=== PATIENT | female | born 1955 | race Caucasian/White ===

== ENCOUNTER 2016-12-13 22:22 | Emergency (ER) | payer OTHER ==
[~2016-12-13] VITALS: Ht 170.2 cm; Wt 106.1 kg
--- NOTE | 2016-12-14 00:19 | PHYS DOC ---
General Chief Complaint: LOWER EXT PAIN Stated Complaint: THINKS BLOOD CLOT IN LEG Time Seen by MD: 00:14 Source: patient, family Problems: History of Present Illness Initial Comments Patient here for left lower extremity swelling. Patient says that she's had some pain off and on over the lateral aspect the left lower leg the last month. However, this morning she woke up and she had a small amount of swelling over the lateral aspect of the middle third of the left lower leg. Over the course the evening this increase, she decided to come to the ER for further evaluation. At time of physician evaluation, she notes that swelling is somewhat improved. She did talk to her own doctor today to try to set up an outpatient ultrasound. She did tell her to take aspirin use warm compresses, and got worse to come to the ER for care. Patient's otherwise been doing fairly well. There is no fever chills URI symptoms or cough. There's no chest pain or shortness of breath. No nausea vomiting or abdominal pain. She has no change amount of bladder habits there is no other focal extremity or neurologic complaints except as noted. She has no weakness numbness or tingling within the left lower leg or the other extremity is, and she's been able to be up and about on her feet without difficulty tonight. Other than warm compresses and aspirin she's been nothing home for this but the occasional Tylenol over the past month. She has no other increasing or decreasing factors. She says the pain has been there for the last month but the swelling is new today. There is no history of injury or trauma recently to the lower extremity is. She did have some injuries 5 years ago falling on concrete steps. Patient's past medical history is remarkable for history of breast cancer with lumpectomy. She is a nonsmoker and a very rare user of ethanol. Past Medical History Medical History: cancer Social History Smoker: non-smoker Alcohol: rarely Review of Systems All Other Systems: Reviewed and Negative Physical Exam General Appearance: WD/WN, no apparent distress Neck: full range of motion, supple, normal inspection Respiratory: lungs clear, normal breath sounds, no respiratory distress Cardiovascular: regular rate, rhythm, no edema Gastrointestinal: non tender, soft, no organomegaly Back: no CVA tenderness, no vertebral tenderness Extremities: non-tender, normal inspection, no calf tenderness, other Neurologic/Psychiatric: alert, normal mood/affect, oriented x 3 Skin: normal color Comments Generally this is a well-developed well-nourished white female in no acute distress. Vitals are as noted. Pertinent findings on physical exam shows the chest to be clear. Cardiovascular exam shows regular rate and rhythm without murmur. The abdomen is soft and nontender. Back shows no CVA tenderness. Extremities show no redness, cords, asymmetry, or signs of DVT. There is some minimal edema over the middle third of the lateral aspect of the left lower leg. There are no signs of trauma. There is no gross varicosity seen. The area is grossly nontender. There is no distinct signs of DVT. There are no distal foot or toe motor sensory, or ivascular deficits noted within the left lower extremity. Neurologic exam finds patient awake alert oriented and cooperative. Remainder of physical exam is clinically unremarkable. Orders, Labs, Meds Old charts note no prior ER visits within the current system. X-rays of the left tibia and fibula show no acute fracture dislocation or bony lesion per the emergency physician. Doppler ultrasound of the left lower extremity shows no evidence of DVT per radiology. 0130 Patient resting comfortable in the ER. I discussed with her the uncertain cause of her lower extremity swelling. There is certainly no evidence of blood clot, and no bony lesions noted on plain films. We discussed they follow-up with primary care, she states she was planning on doing so. Apparently both her physician and the signal operator technical noted that she might need arterial studies. She really is not having good pain relief with Tylenol, so I will go ahead and give her a Lortab here and a prescription for some for home. She does voiced understanding need to follow up with primary care or return to the ER sooner as needed if worsening anyway. She has been able to be up and ambulatory on her leg and I think she'll do well at home. She looks well, no acute discomfort or stress, okay for discharge home at this time. JOSE LUIS ZALDIVAR MD Dec 14, 2016 00:19
--- NOTE | 2016-12-14 01:10 | RAD ---
Examination: Ultrasound left lower extremity venous duplex. History: History of pain. COMPARISON None available. TECHNIQUE Grayscale, color Doppler 2D, spectral waveform analysis of the left lower extremity venous system were performed. Findings The visualized common femoral vein, superficial femoral vein, popliteal vein demonstrate normal compression augmentation of flow. The visualized calf veins are patent. No abnormality identified in the mid anterior lateral left calf region. IMPRESSION No evidence of deep venous thrombus identified in the left lower extremity venous system. Electronically signed by: Isacc Pedraza (Dec 14, 2016 01:08:43)
[2016-12-14 01:50] VITALS: BP 138/75
[2016-12-14] MEDS ORDERED: HYDROCODONE/APAP 5/325MG TABLET. PO ONE (02:00)
--- NOTE | 2016-12-14 09:44 | RAD ---
Portable left tibia and fibula, 2 views, 12/14/2016: History: Swelling No fracture or destructive bony lesion is seen. There are mild degenerative changes at the knee and ankle. There is moderate subcutaneous edema. IMPRESSION: No acute bony abnormality is detected.
== END 2016-12-14 01:50 | disposition home or self-care (01) ==
LOC: ER 22:22
DX: M79.89 Other specified soft tissue disorders (principal); M79.605 Pain in left leg
CPT/HCPCS: 73590; 93971; 99284-25

== ENCOUNTER 2018-06-13 08:01 | Observation (INO) | payer OTHER ==
[~2018-06-13] VITALS: Ht 170.2 cm; Wt 109.5 kg
--- NOTE | 2018-06-13 08:24 | ED.ADGEN ---
Past History Past Medical History: Cancer, Diabetes Past Surgical History: Other Alcohol Use: None Drug Use: None Adult General Chief Complaint Chief Complaint Dizziness HPI HPI Patient is a 62 year old female who presents with a complaint of dizziness. She states that around 6:30 AM she noticed that she was unable to walk successfully and she felt somewhat drunk. States that she was constantly having to grab onto the wall. Admits to neck pain that started a couple of weeks ago. She had chiropractic manipulation performed 2 times last week. While obtaining history on arrival I am performing NIH stroke scale score is 0. Her, due to ataxia code stroke activated. Review of Systems Review of Systems Constitutional: Denies fever or chills Eyes: Denies change in visual acuity, redness, or eye pain HENT: Denies nasal congestion or sore throat Respiratory: Denies cough or shortness of breath Cardiovascular: Denies chest pain, denies syncope GI: Denies abdominal pain, nausea, vomiting, bloody stools or diarrhea : Denies dysuria or hematuria Musculoskeletal: Denies back pain or joint pain Integument: Denies rash or skin lesions Neurologic: Denies headache, focal weakness or sensory changes Endocrine: Denies polyuria or polydipsia All other systems were reviewed and found to be within normal limits, except as documented in this note. Family History Family History noncontributory Current Medications Current Medications Current Medications Medications (Trade) Dose Ordered Sig/Sourav Start Time Stop Time Status Last Admin Dose Admin Diphenhydramine HCl (Benadryl) 25 mg 1X ONCE 06/13/18 09:00 06/13/18 09:01 DC 06/13/18 08:49 25 MG Iohexol (Omnipaque 300 Mg/ml) 75 ml 1X ONCE 06/13/18 09:00 06/13/18 09:01 DC 06/13/18 09:16 75 ML Methylprednisolone Sodium Succinate (SOLU-Medrol 125MG VIAL) 125 mg 1X ONCE 06/13/18 09:00 06/13/18 09:01 DC 06/13/18 08:54 125 MG Ondansetron HCl (Zofran) 4 mg PRN Q4HRS PRN 06/13/18 10:45 06/14/18 10:44 Sodium Chloride 1,000 ml @ 1,000 mls/hr 1X ONCE 06/13/18 08:45 06/13/18 09:44 DC 06/13/18 08:49 1,000 MLS/HR metformin, lisinopril, see list Allergies Allergies Allergies Coded Allergies Type Severity Reaction Last Updated Verified iodine Allergy Intermediate 06/13/18 Yes flexeril Physical Exam Physical Exam Constitutional: Well developed, well nourished, no acute distress, non-toxic appearance. HENT: Normocephalic, atraumatic, bilateral external ears normal, oropharynx moist, no oral exudates, nose normal. Eyes: PERRLA, EOMI, conjunctiva normal, no discharge. Neck: Normal range of motion, no tenderness, supple, no stridor. Cardiovascular:Heart rate regular rhythm, no murmur Lungs & Thorax: Bilateral breath sounds clear to auscultation Abdomen: Bowel sounds normal, soft, no tenderness, no masses, no pulsatile masses. Skin: Warm, dry, no erythema, no rash. Back: No tenderness, no CVA tenderness. Extremities: No tenderness, no cyanosis, no clubbing, ROM intact, no edema. Neurologic: Alert and oriented X 3, normal motor function, normal sensory function, [id number]-[id number] normal, dzgx-cu-[id number] normal, peripheral vision intact in all 4 quadrants bilaterally, speech normal, no aphasia, very subtle fatigable left beating nystagmus, ambulation with mild ataxia Psychologic: Affect normal, judgement normal, mood normal. Current Patient Data Vital Signs Vital Signs Date Time Temp Pulse Resp B/P (MAP) Pulse Ox O2 Delivery O2 Flow Rate FiO2 06/13/18 09:51 82 22 154/88 (110) 99 Room Air 06/13/18 08:15 98.2 mildly hypertensive Lab Results Laboratory Tests Test 06/13/18 08:30 White Blood Count 5.8 x10^3/uL (4.0-11.0) Red Blood Count 4.18 x10^6/uL (3.50-5.40) Hemoglobin 13.3 g/dL (12.0-15.5) Hematocrit 38.8 % (36.0-47.0) Mean Corpuscular Volume 93 fL (79-100) Mean Corpuscular Hemoglobin 32 pg (25-35) Mean Corpuscular Hemoglobin Concent 34 g/dL (31-37) Red Cell Distribution Width 13.3 % (11.5-14.5) Platelet Count 316 x10^3/uL (140-400) Neutrophils (%) (Auto) 70 % (31-73) Lymphocytes (%) (Auto) 19 % (24-48) L Monocytes (%) (Auto) 7 % (0-9) Eosinophils (%) (Auto) 2 % (0-3) Basophils (%) (Auto) 1 % (0-3) Neutrophils # (Auto) 4.1 x10^3uL (1.8-7.7) Lymphocytes # (Auto) 1.1 x10^3/uL (1.0-4.8) Monocytes # (Auto) 0.4 x10^3/uL (0.0-1.1) Eosinophils # (Auto) 0.1 x10^3/uL (0.0-0.7) Basophils # (Auto) 0.1 x10^3/uL (0.0-0.2) Prothrombin Time 10.3 SEC (9.4-11.4) Prothrombin Time INR 1.0 (0.9-1.1) PTT 23 SEC (23-33) Sodium Level 133 mmol/L (136-145) L Potassium Level 3.9 mmol/L (3.5-5.1) Chloride Level 97 mmol/L (98-107) L Carbon Dioxide Level 30 mmol/L (21-32) Anion Gap 6 (6-14) Blood Urea Nitrogen 10 mg/dL (7-20) Creatinine 0.8 mg/dL (0.6-1.0) Estimated GFR (Cockcroft-Gault) 72.2 BUN/Creatinine Ratio 13 (6-20) Glucose Level 219 mg/dL (70-99) H Calcium Level 9.1 mg/dL (8.5-10.1) Total Bilirubin 0.8 mg/dL (0.2-1.0) Aspartate Amino Transferase (AST) 24 U/L (15-37) Alanine Aminotransferase (ALT) 37 U/L (14-59) Alkaline Phosphatase 111 U/L (46-116) Total Protein 6.9 g/dL (6.4-8.2) Albumin 3.3 g/dL (3.4-5.0) L Albumin/Globulin Ratio 0.9 (1.0-1.7) L EKG EKG EKG interpreted by me at 8:34 AM reveals sinus rhythm at 74 bpm with no acute ischemic changes, QTC 418 ms, no previous available at this time. Radiology/Procedures Radiology/Procedures History: SEVERE DIZZINESS, BILATERAL ARM TINGLING/NUMBESS, CHIROPRACTIC MANIPULATION DONE TWICE LAST WEEK, CONCERN FOR CAROTID DISSECTION. PT POSSIBLY ALLERGIC TO CONTRAST, PT PREMEDICATED. 75MLS OMNI 300 IV CONTRAST. NO REACTION NOTED. Comparison/Correlation: None Findings: Axial images of the head and neck were obtained following 75 cc Omnipaque 300 IV. Sagittal and coronal reformatted images were provided. Cerebral vasculature is normal. [place] is grossly unremarkable. Ventricles are normal size. No midline shift or mass effect. Opacification of much of the left maxillary sinus is noted. Opacification of maxillary sinus ostium noted. The carotid arteries are patent in appearance but evaluation is limited at the level of dental amalgam and at the contrast opacified level of the left internal jugular vein at the lower neck level and the left subclavian and left brachiocephalic levels. Trachea is unremarkable. No enlarged cervical lymph nodes. Parotid and submandibular glands are unremarkable. True and false cords are symmetric. Atlantoaxial joint degenerative remodeling is present. Moderate C5-6 disc space narrowing. Impression: No evidence of carotid artery dissection. No definite stenosis. Intracranial arterial vasculature is unremarkable. Electronically signed by: Nadeem Miles MD (06/13/2018 10:01 AM) [facility] DICTATED AND SIGNED BY: NADEEM MILES MD DATE: 06/13/18 0940 CC: CINDY YATES DO; FIDEL RAGLAND MD ~ Course & Med Decision Making Course & Med Decision Making 8:32 AM. Called by radiologist. CT negative for bleeding. Discussed IV contrast with patient. She states that she had a reaction to the contrast during a cardiac catheterization. States she had hives on her right arm. Risk first benefit in favor of pretreatment with Benadryl and Solu-Medrol. Pretest probability of posterior circulation dissection justifies getting the contrast because she would be an interventional radiology candidate and we don't want to waste time. Ddx includes but not limited to: Central vertigo, peripheral vertigo, cerebellar syndrome, carotid/vertebral injury Final Impression Final Impression Ataxic gait Elevated blood pressure with a history of hypertension Plan: Case d/w neurologist train station server Dr. Rojas and hospitalist Dr. Pineda. Admission for further eval. Kourtney Disclaimer Kourtney Disclaimer This electronic medical record was generated, in whole or in part, using a voice recognition dictation system. CINDY YATES DO Jun 13, 2018 08:24
--- NOTE | 2018-06-13 08:33 | RAD ---
CT scan of the head without contrast 06/13/2015 Clinical History: Code stroke. Technique: Unenhanced, contiguous, 5 mm axial sections were obtained through the head. Findings: No previous imaging studies are available for comparison. There is mild generalized parenchymal atrophy. Areas of decreased attenuation are seen within the periventricular and subcortical white matter of both cerebral hemispheres consistent with areas of mild small vessel ischemic disease. No acute parenchymal abnormality is seen. No extra-axial fluid collection is noted. No skull fracture is seen. Moderate mucosal thickening is involving the left maxillary sinus. A small fluid level is seen within the left maxillary sinus. Impression: No acute intracranial abnormality is seen. This result was called to Dr. Abdi at 0826 hours. Electronically signed by: Philippe Artis MD (06/13/2018 8:29 AM) [id number]
--- NOTE | 2018-06-13 08:35 | EKG ---
[address] [address] Test Date: 2018-06-13 Test Time: 08:31:03 Pat Name: SHAYNA AUGUST Department: Room: Gender: F Admitting Counselor: : [id number] Requested By: CINDY YATES Order Number: [id number] Reading MD: Joey Jin Measurements Intervals [place] Rate: 74 P: 34 NE: 176 QRS: 28 QRSD: 88 T: 25 QT: 372 QTc: 418 Interpretive Statements SINUS RHYTHM Electronically Signed On 06-16-2018 12:16:54 CDT by Joey Jin
[2018-06-13] MEDS ORDERED: IV NORMAL SALINE 1,000ML 1,000 ML IV ONE (08:45)
[2018-06-13 08:50] LABS: BASO # 0.1 x10^3/uL (0.0-0.2); BASO % 1 % (0-3); EOS # 0.1 x10^3/uL (0.0-0.7); EOS % 2 % (0-3); HEMATOCRIT 38.8 % (36.0-47.0); HEMOGLOBIN 13.3 g/dL (12.0-15.5); LYMPH # 1.1 x10^3/uL (1.0-4.8); LYMPH % 19 % (24-48); MEAN CORPUSCULAR HEMOGLOBIN 32 pg (25-35); MEAN CORPUSCULAR HGB CONC 34 g/dL (31-37); MEAN CORPUSCULAR VOLUME 93 fL (79-100); MONO # 0.4 x10^3/uL (0.0-1.1); MONO % 7 % (0-9); NEUT # 4.1 x10^3uL (1.8-7.7); NEUT % 70 % (31-73); PLATELET COUNT 316 x10^3/uL (140-400); RED BLOOD COUNT 4.18 x10^6/uL (3.50-5.40); RED CELL DISTRIBUTION WIDTH 13.3 % (11.5-14.5); WHITE BLOOD COUNT 5.8 x10^3/uL (4.0-11.0)
[2018-06-13] MEDS ORDERED: methylPREDNISolone SOD SUCC PF 125 MG/2 ML VIAL. IV ONE (09:00)
[2018-06-13] MEDS ORDERED: IOHEXOL 300 MG/ML 75 ML VIAL. IV ONE (09:00)
[2018-06-13] MEDS ORDERED: diphenhydrAMINE 50 MG/ML VIAL IVP ONE (09:00)
[2018-06-13 09:05] LABS: ALBUMIN 3.3 g/dL (3.4-5.0); ALBUMIN/GLOBULIN RATIO 0.9 (1.0-1.7); CALCIUM 9.1 mg/dL (8.5-10.1); CREATININE 0.8 mg/dL (0.6-1.0); GFR 72.2; POTASSIUM 3.9 mmol/L (3.5-5.1); TOTAL BILIRUBIN 0.8 mg/dL (0.2-1.0); TOTAL PROTEIN 6.9 g/dL (6.4-8.2)
--- NOTE | 2018-06-13 10:05 | RAD ---
Examination: CT ANGIOGRAPHY HEAD AND NECK History: SEVERE DIZZINESS, BILATERAL ARM TINGLING/NUMBESS, CHIROPRACTIC MANIPULATION DONE TWICE LAST WEEK, CONCERN FOR CAROTID DISSECTION. PT POSSIBLY ALLERGIC TO CONTRAST, PT PREMEDICATED. 75MLS OMNI 300 IV CONTRAST. NO REACTION NOTED. Comparison/Correlation: None Findings: Axial images of the head and neck were obtained following 75 cc Omnipaque 300 IV. Sagittal and coronal reformatted images were provided. Cerebral vasculature is normal. [place] is grossly unremarkable. Ventricles are normal size. No midline shift or mass effect. Opacification of much of the left maxillary sinus is noted. Opacification of maxillary sinus ostium noted. The carotid arteries are patent in appearance but evaluation is limited at the level of dental amalgam and at the contrast opacified level of the left internal jugular vein at the lower neck level and the left subclavian and left brachiocephalic levels. Trachea is unremarkable. No enlarged cervical lymph nodes. Parotid and submandibular glands are unremarkable. True and false cords are symmetric. Atlantoaxial joint degenerative remodeling is present. Moderate C5-6 disc space narrowing. Impression: No evidence of carotid artery dissection. No definite stenosis. Intracranial arterial vasculature is unremarkable. Electronically signed by: Nadeem Sosa MD (06/13/2018 10:01 AM) [facility]
[2018-06-13] MEDS ORDERED: ONDANSETRON PF 4 MG/2 ML VIAL. IV PRN (10:45)
[2018-06-13 11:50] VITALS: BP 136/83
[2018-06-13] MEDS ORDERED: LEVO50TA5 PO (14:45)
[2018-06-13] MEDS ORDERED: SITA100T PO (14:45)
[2018-06-13] MEDS ORDERED: LOSA25TA5 PO (14:45)
[2018-06-13] MEDS ORDERED: METF500T16 PO (14:45)
[2018-06-13] MEDS ORDERED: CONTRAST GIVEN MC PRN (15:15)
--- NOTE | 2018-06-13 15:35 | HP ---
ADMIT DATE: 06/13/2018 HISTORY OF PRESENT ILLNESS: The patient is a 62-year-old female patient, who came to the Emergency Room, complaining of dizziness. She stated that around 6:30 in the morning, she noted that she was unable to walk successfully and she felt somewhat drank, states that she was constantly having to grab on to the salas, admits to neck pain, this started about 4 weeks ago. She has seen chiropractic, underwent chiropractic manipulation, performed 2 times last week. She apparently was evaluated in the Emergency Room, was found to have a tendency to fall towards the right side. She was extensively investigated. Her CT scan of the head showed no acute intracranial abnormalities seen and her CT angio of the head and neck showed no evidence of carotid artery dissection. No definite stenosis. Intracranial arterial vasculature is unremarkable. The patient was admitted for further evaluation and treatment and to consult the neurologist. The patient stated that about 4 weeks ago, she started having pain in her right side of the neck after she is sleeping somewhat in an awkward position. She attributed that to multiple stressors including bearing her dog and also her stress because of taking care of multiple children. The pain continued for about 4 weeks. She underwent chiropractic manipulation 2 times last week and felt better while there, but the pain comes back within 3 hours, leaving the chiropractor clinic. This morning when she woke up, she started feeling dizzy and her tendency to fall to the right side that was confirmed by the Emergency Room physician. PAST MEDICAL HISTORY: Significant for type 2 diabetes mellitus, hypertension, and hypothyroidism. According to her, she underwent left heart catheterization in 2016, which showed that all her coronary arteries are patent. PAST SURGICAL HISTORY: Significant for total abdominal hysterectomy without oophorectomy, underwent cholecystectomy, lumpectomy of the right breast, bilateral cataract extraction, laser with coagulation of her left eye. ALLERGIES: SHE IS ALLERGIC TO IODINE, HEPARIN AND FLEXERIL. MEDICATIONS: She is currently on following medications: She is on metformin, Januvia, losartan, and levothyroxine. FAMILY HISTORY: She has 5 brothers and 2 sisters. Her oldest sister at the age of 62 because of pancreatic cancer. Her younger sister was diagnosed with breast cancer when she was 52 years old. All her brothers are relatively healthy. Her father at age 58 because of myocardial infarction. He was alcoholic and heavy smoker. Mother at age of 67 because of ovarian cancer. SOCIAL HISTORY: She is , lives alone. She has 3 sons. She smoked for 2 years during her younger age. She does not drink alcohol. She is a para machine operator. REVIEW OF SYSTEMS: The patient denied any blurring of vision. She had bilateral cataract extraction, but denied any glaucoma or macular degeneration. She denied any earache, tinnitus or sensorineural deafness. Denied any nosebleeds, stuffy nose or postnasal drip. Denied any sore throat, sore tongue, toothache, hoarseness of voice or difficulty swallowing. Denied any nausea, vomiting, diarrhea or constipation. Denied any hematemesis, melena or hematochezia. Denied any dysuria, frequency or hematuria. Denied any chest pain, shortness of breath, orthopnea, paroxysmal nocturnal dyspnea. Denied any cough, phlegm or hemoptysis. Denied any chills, rigors, or fever. She did complain of dizziness, but denied any spinning things, spinning around and apparently has tendency to fall towards the right side. LABORATORY DATA: While in the Emergency Room, she had lab work showed a serum sodium 133, potassium 3.9, chloride 97, bicarbonate 30, anion gap of 6, BUN 10, creatinine 0.8, estimated GFR was 72 mL per minute. Her glucose was 219, calcium was 9.1. Total bilirubin, AST, ALT, alkaline phosphatase were normal. Her total protein was 6.9, albumin 3.3. Her white cell count was 5800, hemoglobin 13.3, hematocrit 38.8, MCV was 93 and a platelet count 316,000. Her prothrombin time was 10.3, INR 1, and aPTT was 23. As I stated earlier, her CT scan of the head showed that there is mild generalized parenchymal atrophy, areas of decreased attenuation are seen within the periventricular and subcortical white matter of both cerebral hemispheres consistent with areas of mild small vessel ischemic disease, no acute parenchymal abnormality seen. No extraaxial fluid collection is noted, no skull fracture is seen, and moderate mucosal thickening is involving the left maxillary sinus. A small fluid level is seen within the left maxillary sinus. CT angio of the neck and head showed that the carotid arteries are patent in appearance, but evaluation is limited at the level of dental amalgam and the other contrast specified level of the left internal jugular vein at the lower neck level and the left subclavian and brachiocephalic levels. Trachea is unremarkable. No enlarged cervical lymph nodes, parotid glands. Submandibular glands are unremarkable. True and false cords are symmetrical and the impression is that the patient has no evidence of carotid artery dissection. No definite stenosis. The intracranial arterial vasculature is unremarkable. The patient was admitted and we will continue all her medication. We will consult the Dr. Rojas for further evaluation and treatment. CRISPIN GRIFFIN MD DR: CÉSAR/fara JOB#: [id number] / [id number]
[2018-06-13 16:30] VITALS: BP 142/83
[2018-06-13] MEDS ORDERED: METF10007 PO (18:59)
[2018-06-13 19:27] VITALS: BP 116/64
[2018-06-13] MEDS: ASPIRIN 81 MG TAB.CHEW PO SCH (20:06)
[2018-06-13] MEDS ORDERED: NON FORMULARY ITEM (Metformin Hcl 1 TAB) PO SCH (21:00)
[2018-06-13 22:42] VITALS: BP 135/77
[2018-06-14 04:58] VITALS: BP 111/69
[2018-06-14] MEDS ORDERED: LEVOTHYROXINE 50 MCG TABLET PO SCH (06:00)
[2018-06-14 07:49] LABS: BASO % 0 % (0-3); EOS % 0 % (0-3); HEMATOCRIT 38.6 % (36.0-47.0); HEMOGLOBIN 12.8 g/dL (12.0-15.5); LYMPH # 2.7 x10^3/uL (1.0-4.8); LYMPH % 25 % (24-48); MEAN CORPUSCULAR HEMOGLOBIN 31 pg (25-35); MEAN CORPUSCULAR HGB CONC 33 g/dL (31-37); MEAN CORPUSCULAR VOLUME 93 fL (79-100); MONO # 0.9 x10^3/uL (0.0-1.1); MONO % 8 % (0-9); NEUT % 66 % (31-73); PLATELET COUNT 311 x10^3/uL (140-400); RED BLOOD COUNT 4.14 x10^6/uL (3.50-5.40); RED CELL DISTRIBUTION WIDTH 13.6 % (11.5-14.5); WHITE BLOOD COUNT 10.6 x10^3/uL (4.0-11.0)
[2018-06-14 07:58] LABS: ALBUMIN 3.1 g/dL (3.4-5.0); ALBUMIN/GLOBULIN RATIO 0.9 (1.0-1.7); CALCIUM 9.2 mg/dL (8.5-10.1); CREATININE 0.8 mg/dL (0.6-1.0); GFR 72.2; POTASSIUM 3.6 mmol/L (3.5-5.1); TOTAL BILIRUBIN 0.9 mg/dL (0.2-1.0); TOTAL PROTEIN 6.5 g/dL (6.4-8.2)
[2018-06-14 08:15] VITALS: BP 111/69
[2018-06-14] MEDS: ASPIRIN 81 MG TAB.CHEW PO SCH (08:15)
[2018-06-14] MEDS ORDERED: LOSARTAN 25 MG TABLET. PO SCH (09:00)
[2018-06-14] MEDS ORDERED: LINAGLIPTIN 5 MG TABLET PO SCH (09:00)
[2018-06-14 11:49] LABS: % BANDS 5 % (0-9); % EOS 2 % (0-5); % LYMPHS 21 % (24-48); % MONOS 4 % (0-10); % SEGS 66 % (35-66); PLT ESTIMATE ADEQUATE (ADEQUATE)
--- NOTE | 2018-06-14 18:52 | DS ---
DATE OF DISCHARGE: HOSPITAL COURSE: The patient is a 62-year-old female patient, who was admitted yesterday with a complaint of dizziness. She stated that she was unable to walk and felt as if she was drunk. She states that she was constantly having to grab on to the salas, admits to neck pain. She also said that she has tendency to fall to the right side. She was evaluated in the Emergency Room, was found to have a tendency to fall towards the right side also; however, she was extensively investigated. Her CT scan of the head showed no acute intracranial abnormalities seen. Her CT angio of the head and neck showed that no evidence of carotid artery disease or dissection. No definite stenosis, intracranial arterial vasculature is unremarkable. When I examined her yesterday, I could not see evidence of any cerebellar dysfunction. She was able to walk without assistance or assistive devices without any tendency to fall to either side. I saw her again together with Dr. Rojas today and she was able to walk without any difficulty, without any tendency to fall. Denied any dizziness or lightheadedness. Denied things spinning around and it was felt that the patient is safe to be discharged home to follow with Dr. Rojas if she has any further issues. PHYSICAL EXAMINATION: GENERAL: When I examined her today, she looked well and was clearly in no apparent respiratory distress. No pallor, jaundice, cyanosis or thyromegaly. No jugular venous distention. No limb edema. VITAL SIGNS: Her heart rate was 88, blood pressure was 111/69, temperature was 98.1, respiratory rate 20, and oxygen saturation was 97%. HEAD, EYES, EARS, NOSE AND THROAT: Normocephalic, atraumatic. NECK: Supple. HEART: Showed normal first and second heart sounds with no gallop, rub or murmur. CHEST: Clear to auscultation. No crepitation or rhonchi. ABDOMEN: Distended, soft, nontender. No guarding or rigidity. No organomegaly. Hernial orifice intact. Bowel sounds normal. NEUROLOGICAL: She was awake, alert, and responding appropriately. All cranial nerves intact. She moves extremities without difficulty. She ambulates without assistance or assistive devices. LABORATORY DATA: Her lab work this morning showed a white cell count of 10,600, hemoglobin 12.8, hematocrit 38, MCV 93, and platelet count 311,000. Her chemistry showed a serum sodium of 135, potassium 3.5, chloride 96, bicarbonate 28, anion gap of 9, BUN 12, creatinine 0.8, estimated GFR was 72 mL per minute, her glucose was 174, and calcium was 9.2. Total bilirubin, AST, ALT, and alkaline phosphatase were normal. Total protein was 6.5, albumin was 3.1. Her prothrombin time was 10.3, INR 1, aPTT was 23. DISCHARGE MEDICATIONS: The patient will be discharged home on levothyroxine sodium 50 mcg once a day, losartan potassium 25 mg once a day, metformin 1000 mg twice a day, and Januvia 100 mg once a day. She was advised to not to take metformin until tomorrow morning as she had had CT angio and to avoid any contrast-induced nephropathy aggravated by metformin. FINAL DISCHARGE DIAGNOSES: Dizziness versus ataxia that apparently has self-limited, resolved without any obvious neurological deficit; hypothyroidism, hypertension, and type 2 diabetes. CRISPIN GRIFFIN MD DR: CÉSAR/fara JOB#: [id number] / [id number]
--- NOTE | 2018-06-15 10:13 | CONS ---
DATE OF CONSULTATION: 06/13/2018 NEUROLOGY CONSULTATION REFERRING PHYSICIAN: Dr. Pineda. REASON FOR CONSULTATION: Dizziness and unsteady gait. HISTORY OF PRESENT ILLNESS: This is a 62-year-old right-handed female who was admitted through the Emergency Room after she presented with new onset of dizziness described as lightheadedness then unsteady gait with impaired balance. The symptoms began at 6:30 in the morning. When she got up and tried to walk to the bathroom, she was unable to walk and she felt like as if she is drunk. She tilted to the right side against the wall, but she did not have a complete fall. She also complains of neck pain radiating to the right shoulder and sometimes the right upper extremity. The neck pain started approximately 4 weeks ago and she was seen by a chiropractor who did some manipulation. In the Emergency Room, the patient was found to have unsteady gait and a tendency to fall to the right. Initial nonenhanced head CT scan revealed no evidence of acute intracranial process; however, a CT angio of the neck and head revealed no evidence of vascular disease, narrowing or aneurysm, but it showed degenerative disk disease at C5-C6. She denies numbness or weakness of the upper extremities, but she continues to have neck pain as described above. The patient denies chest pain, shortness of breath or palpitation, dysarthria, dysphagia, palpitation, nausea, vomiting, or bowel movement changes. She denies any recent head injuries or fall. PAST MEDICAL HISTORY: Significant for hypertension, diabetes mellitus type 2, hypothyroidism. PAST SURGICAL HISTORY: Status post cardiac catheterization in 2016 without evidence of coronary artery disease, abdominal hysterectomy, cholecystectomy, lumpectomy of the right breast, bilateral cataract extraction, and laser surgery of the left eye. FAMILY HISTORY: Sister at the age of 62 from pancreatic cancer, another sister had breast cancer at age of 52. Father at the age of 58 from myocardial infarction and mother at the age of 67 from ovarian cancer. SOCIAL HISTORY: The patient is . She lives independently. She has 3 sons. She smokes and she quit. She denies smoking, alcohol drinking, or illicit drug use. She is a restaurant crew member. CURRENT HOME MEDICATIONS: Metformin, Januvia, losartan, and levothyroxine. ALLERGIES: IODINE. REVIEW OF SYSTEMS: A 10-point review of system was performed as mentioned above in history of present illness. PHYSICAL EXAMINATION: GENERAL: Well-developed, well-nourished female, in acute distress. She weighs 241 pounds. VITAL SIGNS: Blood pressure 116/64, respiratory rate 20, pulse is 108, temperature 98.4, oxygen saturation 95% on room air. HEENT: Normocephalic, atraumatic, otherwise unremarkable. NECK: Supple. Negative for carotid bruit, lymphadenopathy, or thyromegaly. LUNGS: Clear to A and P. CARDIOVASCULAR: Regular rhythm, normal S1-S2. There is no S3, S4, or murmur. ABDOMEN: Soft. Bowel sounds are positive. There is no palpable mass, organomegaly, or tenderness. EXTREMITIES: Negative for cyanosis, clubbing, or pitting edema. NEUROLOGIC: 1. Mental status: The patient is alert and oriented x 3. Speech is fluent. There is no language dysfunction. Memory, judgment, and abstract thinking are normal. The patient denies hallucination or delusion. 2. Cranial Nerves: Visual blake are full. The pupils are reactive to light and accommodation. The extraocular movements are intact. There is no nystagmus. There is no facial motor or sensory deficit. Hearing is intact bilaterally. The palate is elevated symmetrically. Sternocleidomastoid muscles are powerful bilaterally. The patient shrugs her shoulders symmetrically. She protrudes her tongue in the midline without fasciculation or atrophy. 3. Motor Examination: No muscle bulk is seen. The tone is normal. The strength is 5/5 throughout. 4. Sensory Examination: Reveals normal pinprick and light touch senses throughout. Deep tendon reflexes are asymmetric and hypoactive with absent Achilles responses. 5. Gait: The stance is steady. The patient has abnormal tandem gait. Coordination is normal. The patient has normal upesae-be-ogei and cxni-fn-taoj, rapid alternating movements and rapid repetitive movements. DIAGNOSTIC DATA: Head CT scan and CT angio of the neck and head as mentioned above in history of present illness. LABORATORY DATA: CBC revealed white blood cells of 5.8 thousand, hemoglobin 13.3, hematocrit 38.8, platelet count 316,000. Chemistry revealed sodium of 133, potassium 3.9, chloride 97, CO2 30, BUN 10, creatinine 0.8, glucose 219, calcium 9.1. Liver enzymes are normal. Coagulation is normal. IMPRESSION: 1. New onset of dizziness described as unsteady gait, resolved, with normal current neurological examination and no evidence of vascular disease, questionable of transient ischemic attack versus positional vertigo without neurological sequela. 2. Multiple medical problems include hypertension, diabetes mellitus type 2, and hypothyroidism. RECOMMENDATIONS: 1. We will continue with current home medications and management initiated by Dr. Pineda. 2. We will start the patient on aspirin 81 mg daily. 3. Physical therapy evaluation and weight loss program. 4. In case of progressive radicular neck pain, the patient should come to Neurology Clinic for further evaluation to rule out cervical radiculopathy versus entrapment neuropathy in the right upper extremity. M Frida BARR MD DR: ELDER/fara JOB#: [id number] / [id number]
--- NOTE | 2018-06-15 11:46 | PN ---
DATE: 06/14/2018 SUBJECTIVE: The patient denies any new medical or neurological complaints. She denies headaches, visual disturbances, nausea, vomiting, chest pain, shortness of breath or palpitation, dysarthria, dysphagia, weakness or paresthesia. The patient stated she is almost back to normal and she denies any falls. She walks better today. OBJECTIVE: GENERAL: Moderately obese female, not in acute distress. VITAL SIGNS: Blood pressure 111/69, respiratory rate 20, pulse is 88, temperature is 98.1, oxygen saturation 97% on room air. HEENT: Normocephalic, atraumatic, otherwise unremarkable. NECK: Supple. Negative for carotid bruit, lymphadenopathy, or thyromegaly. LUNGS: Clear to A and P. CARDIOVASCULAR: Regular rate and rhythm, normal S1-S2. There is no S3, S4, or murmur. ABDOMEN: Soft. Bowel sounds positive. EXTREMITIES: Negative for cyanosis, clubbing, or pitting edema. NEUROLOGIC: Normal mental status and intact cranial nerves. There is no evidence of focal, motor, or sensory deficit. Deep tendon reflexes were symmetric and active with absent Achilles responses. Gait and coordination were normal. IMPRESSION: 1. Dizziness upon changing her body positions presented with lightheadedness, unsteady gait, which has improved since admission and with normal neurological examination and negative nonenhanced head CT scan and negative head and neck CT angio for any vascular disease or stroke. 2. Multiple medical problems including hypertension, diabetes mellitus type 2, hypothyroidism. RECOMMENDATIONS: 1. Continue with current home medications and management initiated by Dr. Pineda. 2. Follow up with neurological clinic in case of intractable or radicular neck pain. M Frida BARR MD DR: ELDER/fara JOB#: [id number] / [id number]
[2018-06-15] MEDS ORDERED: metFORMIN 500 MG TABLET PO SCH (17:00)
== END 2018-06-14 11:30 | disposition home or self-care (01) ==
LOC: ER 08:01 → 1 SOUTH 11:04 → INTOOBSV 11:04
PROVIDERS: ADMIT Internal Medicine; ATTEND Internal Medicine
DX: R42 Dizziness and giddiness (principal); E11.9 Type 2 diabetes mellitus without complications; I10 Essential (primary) hypertension; E03.9 Hypothyroidism, unspecified; Z23 Encounter for immunization
CPT/HCPCS: 36415; 70450; 70496; 70498; 80053; 82947; 85007; 85025; 85610; 85730; 90471; 90756; 93005; 96361; 96374; 96375; 99285; G0378; J1200; J2930; Q9967; G0379; J7030; Q2035

== ENCOUNTER 2021-08-30 00:21 | Emergency (ER) | payer BC, OTHER ==
[~2021-08-30] VITALS: Ht 170.2 cm; Wt 109.0 kg
[~2021-08-30 00:21] MED LIST: LEVO50TA5 PO; LOSA25TA11 PO; METF10007 PO; METF500T16 PO; SITA100T PO
--- NOTE | 2021-08-30 01:02 | PHYS DOC ---
Past History Past Medical History: Diabetes, Hypertension, Hypothyroid Past Surgical History: Cholecystectomy, Hysterectomy, Other Alcohol Use: None Drug Use: None General Adult EDM: Chief Complaint: HIP PAIN HPI: HPI: " .. My hip has been killing me.. sometimes it better.. but other times I can't move.. I seen chiropractor and he did some adjustments on me and it seemed to feel better but after I got home it started hurting again really bad.... 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 " Patient is a 65 year old female who presents with above hx and complaints of severe Lt hip pain. Pain seems to follow the sciatic nerve on the Lt.. The p atient has had history of breast cancer and underwent chemotherapy radiation and surgery. Treatments reportedly has given care of the breast cancer. Patient denies any fever or chills. Is up-to-date with vaccinations including Covid Pneumovax and flu vaccine. No recent falls. Does feel that she may have overdone the other day when shopping. No history of heavy lifting. No history of immunosuppression. No history of recent travel. No specific ill contacts. Patient did undergo a chiropractic manipulation which helped at first but now the pain seems to be back. No problems with defecation or urination. No reported solid loss. Does have marked tenderness of the lumbar sacral left side and sciatic nerve as it comes through the hip area on the left. Pt. follows with [facility]. Review of Systems: Review of Systems: Constitutional: Denies fever or chills Eyes: Denies change in visual acuity HENT: Denies nasal congestion or sore throat Respiratory: Denies cough or shortness of breath Cardiovascular: Denies chest pain or edema GI: Denies abdominal pain, nausea, vomiting, bloody stools or diarrhea : Denies dysuria Musculoskeletal: Complains of severe left hip pain Integument: Denies rash Neurologic: Denies headache, focal weakness or sensory changes Endocrine: Denies polyuria or polydipsia Lymphatic: Denies swollen glands Psychiatric: Denies depression or anxiety Family History: Family History: Noncontributory to presentation. Current Medications: Current Meds: See nursing for home meds Allergies: Allergies: Allergies Coded Allergies Type Severity Reaction Last Updated Verified iodine Allergy Intermediate 06/13/18 Yes Physical Exam: PE: Constitutional: Reports acute distress, non-toxic appearance. [] HENT: Normocephalic, atraumatic, bilateral external ears normal, oropharynx moist, no oral exudates, nose normal. [] Eyes: PERRLA, EOMI, conjunctiva normal, no discharge. Glasses Neck: Normal range of motion, no tenderness, supple, no stridor. [] Cardiovascular:Heart rate regular rhythm, no murmur [] Lungs & Thorax: Bilateral breath sounds equal apex auscultation [] old surgical scars Abdomen: Bowel sounds normal, soft, no tenderness, no masses, no pulsatile masses. Obese Skin: Warm, dry, no erythema, no rash. [] Back: Left lumbar sacral tenderness, no CVA tenderness. [] Extremities: Lt. hip tenderness, no cyanosis, no clubbing, ROM intact, no edema. [] No cording appreciated Neurologic: Alert and oriented X 3, normal motor function, normal sensory function, no focal deficits noted. [] Psychologic: Affect normal, judgement normal, mood normal. [] EKG: EKG: [] Radiology/Procedures: Radiology/Procedures: [place] [address] IMAGING REPORT Signed PATIENT: SHAYNA AUGUSTUNT: [id number] : 1955 LOCATION: ER AGE: 65 SEX: F EXAM STATUS: REG ER ORD. PHYSICIAN: HELEN ARMENTA MD REASON: Lt hip and lower back pain PROCEDURE: CT LUMBAR SPINE WO CONTRAST CT LUMBAR SPINE WO Date: 08/30/2021 1:10 AM Indication: Lt hip and lower back pain Comparison: None. Technique: Helical CT images of the lumbar spine were obtained without contrast. Coronal and sagittal reformatted images were also performed. One or more of the following dose reduction techniques were utilized: Automated expos ure control (AEC), Adjustment of mA and/or kV according to patient size, Use of iterative reconstruction technique such as ASiR, CT scan done according to ALARA and image gently/image wisely. Findings: The lumbar spine is normally aligned. No acute fracture. Vertebral body heights are maintained without compression deformity. Mild multilevel degenerative disc disease. No aggressive lytic or blastic osseous lesion. No high grade spinal canal stenosis or neuroforaminal narrowing. No soft tissue abnormality within the visualized abdomen or pelvis. The visualized abdominal aorta is normal caliber. IMPRESSION: 1. No acute osseous abnormality of the lumbar spine. 2. Mild lumbar spondylosis. Electronically signed by: Yancy Banerjee MD (08/30/2021 2:46 AM) [facility] DICTATED AND SIGNED BY: YANCY BANERJEE MD DATE: 08/30/21243 CC: HELEN ARMENTA MD; FIDEL RAGLAND MD ~MTH0 0 [][place] [address] IMAGING REPORT Signed PATIENT: SHAYNA AUGUSTUNT: [id number] : 1955 LOCATION: ER AGE: 65 SEX: F EXAM STATUS: REG ER ORD. PHYSICIAN: HELEN ARMENTA MD REASON: Lt hip and lower back pain PROCEDURE: CT PELVIS WO CONTRAST CT PELVIS WO DATE: 08/30/2021 1:10 AM INDICATION: Reason: Lt hip and lower back pain / Spl. Instructions: / History: TECHNIQUE: Multidetector helical CT scan through the pelvis was performed. Coronal and sagittal 2 D reconstructions were generated. Images were reviewed on the PACS workstation at soft tissue and osseous window settings. One or more of the following individualized dose reduction techniques were utilized for this examination: 1. Automated exposure control 2. Adjustment of the mA and/or kV according to patient size 3. Use of iterative reconstruction technique COMPARISON: None FINDINGS: Bones: There is no acute fracture or dislocation. Joints: Mild degenerative changes of the hips, SI joints, and symphysis pubis. Soft tissues: No fluid collections or focal soft tissue swelling. Colonic diverticulosis. IMPRESSION: 1. No acute fracture. 2. Mild degenerative changes Electronically signed by: Yancy Banerjee MD (08/30/2021 2:46 AM) [facility] DICTATED AND SIGNED BY: YANCY BANERJEE MD DATE: 08/30/21244 CC: HELEN ARMENTA MD; FIDEL RAGLAND MD ~MTH0 0 Heart Score: C/O Chest Pain: N/A Risk Factors: Risk Factors: DM, Current or recent (<one month) smoker, HTN, HLP, family history of CAD, obesity. Risk Scores: Score 0 - 3: 2.5% MACE over next 6 weeks - Discharge Home Score 4 - 6: 20.3% MACE over next 6 weeks - Admit for Clinical Observation Score 7 - 10: 72.7% MACE over next 6 weeks - Early Invasive Strategies Course & Med Decision Making: Course & Med Decision Making Pertinent Labs and Imaging studies reviewed. (See chart for details) Take Tylenol and ibuprofen for discomfort. Ice packs up to 4 times a day daily for the next 3 days. May advance to moist heat after 3 days. Follow-up primary care. Consider consider physical therapy. May need trigger point injection. Return if any concerns. If continued pain in left hip and lumbar sacral area consider MRI. Impression: 1, Lt. Hip Pain 2. Sciatica 3. Arthritis [] Dragon Disclaimer: Dragon Disclaimer: This electronic medical record was generated, in whole or in part, using a voice recognition dictation system. Departure Departure: Referrals: FIDEL RAGLAND MD (PCP) Scripts Lidocaine (Lidocaine PATCH ) 1 Each Adh..patch 1 EACH TP DAILY for FOR LOCAL PAIN, #30 PATCH REMOVE AFTER 12 HOURS Prov: HELEN ARMENTA MD 08/30/21 Cyclobenzaprine Hcl (CYCLOBENZAPRINE HCL) 10 Mg Tablet 10 MG PO tidprn for muscle spasms, #30 TAB Prov: HELEN ARMENTA MD 08/30/21 Dragon Disclaimer This chart was dictated in whole or in part using Voice Recognition software in a busy, high-work load, and often noisy Emergency Department environment. It may contain unintended and wholly unrecognized errors or omissions. Dragon Disclaimer This chart was dictated in whole or in part using Voice Recognition software in a busy, high-work load, and often noisy Emergency Department environment. It may contain unintended and wholly unrecognized errors or omissions. HELEN ARMENTA MD Aug 30, 2021 01:02
[2021-08-30] MEDS ORDERED: ORPHENADRINE CITRATE 60 MG/2 ML VIAL. IM ONE (01:15)
[2021-08-30] MEDS ORDERED: MORPHINE SULFATE 10 MG/ML SYRINGE. SQ ONE (01:15)
[2021-08-30] MEDS ORDERED: methylPREDNISolone ACETATE 40 MG/ML VIAL. IM ONE (01:15)
[2021-08-30] MEDS ORDERED: KETOROLAC 60 MG/2 ML VIAL. IM ONE (01:15)
[2021-08-30 02:24] VITALS: BP 130/69
--- NOTE | 2021-08-30 02:49 | RAD ---
CT LUMBAR SPINE WO Date: 08/30/2021 1:10 AM Indication: Lt hip and lower back pain Comparison: None. Technique: Helical CT images of the lumbar spine were obtained without contrast. Coronal and sagitta l reformatted images were also performed. One or more of the following dose reduction techniques were utilized: Automated exposure control (AEC), Adjustment of mA and/or kV according to patient size, Us e of iterative reconstruction technique such as ASiR, CT scan done according to ALARA and image gentl y/image wisely. Findings: The lumbar spine is normally aligned. No acute fracture. Vertebral body heights are maintained withou t compression deformity. Mild multilevel degenerative disc disease. No aggressive lytic or blastic os seous lesion. No high grade spinal canal stenosis or neuroforaminal narrowing. No soft tissue abnormality within the visualized abdomen or pelvis. The visualized abdominal aorta is normal caliber. IMPRESSION: 1. No acute osseous abnormality of the lumbar spine. 2. Mild lumbar spondylosis. Electronically signed by: Ricardo Banerjee MD (08/30/2021 2:46 AM) [facility]
--- NOTE | 2021-08-30 02:49 | RAD ---
CT PELVIS WO DATE: 08/30/2021 1:10 AM INDICATION: Reason: Lt hip and lower back pain / Spl. Instructions: / History: TECHNIQUE: Multidetector helical CT scan through the pelvis was performed. Coronal and sagittal 2 D r econstructions were generated. Images were reviewed on the PACS workstation at soft tissue and osseou s window settings. One or more of the following individualized dose reduction techniques were utilized for this examinat ion: 1. Automated exposure control 2. Adjustment of the mA and/or kV according to patient size 3. Use of iterative reconstruction technique COMPARISON: None FINDINGS: Bones: There is no acute fracture or dislocation. Joints: Mild degenerative changes of the hips, SI joints, and symphysis pubis. Soft tissues: No fluid collections or focal soft tissue swelling. Colonic diverticulosis. IMPRESSION: 1. No acute fracture. 2. Mild degenerative changes Electronically signed by: Ricardo Banerjee MD (08/30/2021 2:46 AM) [facility]
[2021-08-30] MEDS ORDERED: CYCL10TA19 PO (02:58)
[2021-08-30] MEDS ORDERED: LIDO700A21 TP (03:00)
[2021-08-30] MEDS ORDERED: LIDOCAINE (700MG/PATCH) PATCH. TD SCH (03:01)
[2021-08-30] MEDS ORDERED: PATCH REMOVAL. MC SCH (21:00)
== END 2021-08-30 03:32 | disposition home or self-care (01) ==
LOC: ER 00:21
DX: M54.42 Lumbago with sciatica, left side (principal); M25.552 Pain in left hip; M19.90 Unspecified osteoarthritis, unspecified site; E11.9 Type 2 diabetes mellitus without complications; I10 Essential (primary) hypertension; E03.9 Hypothyroidism, unspecified; Z88.8 Allergy status to other drugs, medicaments and biological substances
CPT/HCPCS: 72131; 72192; 96372; 99284; J1030; J1885; J2270; J2360